=== PATIENT | male | born 1940 | race Caucasian/White ===

== ENCOUNTER 2016-12-07 20:05 | Emergency (ER) | payer MEDICARE, BC ==
[~2016-12-07] VITALS: Ht 172.7 cm; Wt 93.6 kg
[~2016-12-07 20:05] MED LIST: LISINOPRIL/HCTZ1 TA2 PO; PEPCID AC 10MG10 MG PO; PERCOCET 5/321 UDTAB PO; PRILOSEC 20MG20 MG PO; PRINZIDE 25 MG-1 TAB PO; ZOCOR 20MG20 MG PO
[2016-12-07 20:11] VITALS: TEMP 98.1
[2016-12-07] MEDS ORDERED: AMOXICILLIN 8751 TAB PO (22:39)
[2016-12-07 22:43] VITALS: BP 136/52; PULSE 80
== END 2016-12-07 22:47 | disposition home or self-care (01) ==
LOC: COL.ER 20:05
DX: S61.257A Open bite of left little finger without damage to nail, initial encounter (principal); S60.812A Abrasion of left wrist, initial encounter; S60.512A Abrasion of left hand, initial encounter; W55.01XA Bitten by cat, initial encounter; Y92.009 Unspecified place in unspecified non-institutional (private) residence as the place of occurrence of the external cause

== ENCOUNTER → 2016-12-16 | Emergency (ER) | payer MEDICARE, BC ==
[~2016-12-16] MED LIST changes: +AMOXICILLIN 8751 TAB PO
[2016-12-16 10:47] VITALS: BP 116/73; PULSE 59
== END | disposition home or self-care (01) ==
LOC: COL.ER 10:26
DX: Z48.02 Encounter for removal of sutures (principal)

== ENCOUNTER → 2018-10-31 | Outpatient (CLI) | payer MEDICARE, BC | LOC: COL.RAD 08:39 | DX: D32.0 Benign neoplasm of cerebral meninges (principal); G93.89 Other specified disorders of brain; Z98.890 Other specified postprocedural states | CPT/HCPCS: A9585 ==

== ENCOUNTER → 2019-05-08 | Outpatient (CLI) | payer MEDICARE, BC | LOC: COL.RAD 12:47 | DX: D32.0 Benign neoplasm of cerebral meninges (principal) | CPT/HCPCS: A9585 ==

== ENCOUNTER → 2019-05-28 | Outpatient (CLI) | payer MEDICARE, BC | LOC: MHCPAIN 10:33 | DX: G89.29 Other chronic pain (principal); M79.2 Neuralgia and neuritis, unspecified; B02.29 Other postherpetic nervous system involvement | CPT/HCPCS: G0463 ==

== ENCOUNTER 2019-10-05 23:53 | Emergency (ER) | payer MEDICARE, BC ==
[~2019-10-05] VITALS: Ht 172.7 cm; Wt 95.5 kg
[2019-10-06 00:02] VITALS: TEMP 98.3
[2019-10-06 02:00] VITALS: BP 154/79; PULSE 66
== END 2019-10-06 02:00 | disposition home or self-care (01) ==
LOC: COL.ER 23:53
DX: R06.00 Dyspnea, unspecified (principal); Z93.0 Tracheostomy status

== ENCOUNTER → 2019-11-08 | Outpatient (CLI) | payer MEDICARE, BC | LOC: COL.RAD 10:15 | DX: E04.1 Nontoxic single thyroid nodule (principal) ==

== ENCOUNTER → 2021-03-18 | Outpatient (CLI) | payer MEDICARE, BC | LOC: COL.RAD 09:20 | DX: D32.0 Benign neoplasm of cerebral meninges (principal) | CPT/HCPCS: A9585 ==

== ENCOUNTER → 2022-05-13 | Outpatient (CLI) | payer MEDICARE, BC | LOC: COL.RAD 09:44 | DX: D32.0 Benign neoplasm of cerebral meninges (principal) | CPT/HCPCS: A9575 ==

== ENCOUNTER 2023-12-09 10:35 | Emergency (ER) | payer MEDICARE, BC ==
[~2023-12-09] VITALS: Ht 167.6 cm; Wt 75.5 kg
[2023-12-09] MEDS ORDERED: Oxymetazoline 0.05% Nasal Spray 30 ML BOTTLE NS ONE (11:00)
[2023-12-09] MEDS ORDERED: Tranexamic Acid 1,000 MG/10 ML VIAL NS ONE (11:00)
[2023-12-09 11:33] LABS: BASO # 0.1 K/mm3 (0.0-0.2); BASO % 0.6 % (0.0-2.0); EOS # 0.2 K/mm3 (0.0-0.7); EOS % 2.1 % (0.0-4.0); GRAN # 5.6 K/mm3 (1.4-6.5); GRAN % 70.3 % (42.2-75.2); HEMATOCRIT 36.8 % (42.0-52.0); LYMPH # 1.6 K/mm3 (1.2-3.4); LYMPH % 19.4 % (20.0-51.0); MEAN CELL VOLUME 95 fl (80.0-100.0); MEAN CORPUSCULAR HEMOGLOBIN 31 pg (27-31); MEAN CORPUSCULAR HGB CONC 33 g/dl (33.0-37.0); MEAN PLATELET VOLUME 8.8 fl (7.4-10.4); MONO # 0.6 K/mm3 (0.1-0.6); MONO % 7.3 % (1.7-9.3); PLATELET COUNT 306 K/mm3 (130-400); RED BLOOD COUNT 3.87 M/mm3 (4.20-5.60); REDCELL DISTRIBUTION WIDTH-CV 13.2 % (11.5-14.5)
[2023-12-09 11:38] LABS: INR 1.1 (0.8-3.0); PROTHROMBIN TIME 12.1 SECONDS (9.7-12.8)
[2023-12-09 12:21] VITALS: BP 139/82; PULSE 95
== END 2023-12-09 12:35 | disposition home or self-care (01) ==
LOC: COL.ER 10:35
PROVIDERS: Family Medicine
DX: R04.0 Epistaxis (principal); D32.9 Benign neoplasm of meninges, unspecified

== ENCOUNTER 2024-03-23 04:39 | Emergency (ER) | payer MEDICARE, BC ==
[~2024-03-23] VITALS: Ht 172.7 cm; Wt 68.2 kg
[2024-03-23] MEDS ORDERED: cefTRIAXone 1 G in Water For Injection,Sterile 10 ML IV ONE (04:45)
[2024-03-23] MEDS ORDERED: NS 1,000 ML IV ONE (04:45)
[2024-03-23 04:47] VITALS: TEMP 96.1
[2024-03-23 05:54] LABS: ALBUMIN 3.3 g/dL (3.4-4.8); BILIRUBIN,TOTAL 0.9 mg/dL (0.2-1.2); CREATININE, serum 1.01 mg/dL (0.72-1.25); POTASSIUM 4.6 mEq/L (3.5-4.5); TOTAL PROTEIN 7.9 g/dl (6.2-8.1)
[2024-03-23 05:59] LABS: URINE APPEARANCE CLEAR (CLEAR/HAZY); URINE BLOOD NEGATIVE (NEGATIVE); URINE COLOR YELLOW (YELLOW); URINE GLUCOSE NEGATIVE (NEGATIVE); URINE KETONE TRACE (NEGATIVE); URINE NITRATE NEGATIVE (NEGATIVE); URINE PROTEIN(semi-quant) NEGATIVE (NEGATIVE); URINE UROBILINOGEN 0.2 E.U/dL (0.2-1.0)
[2024-03-23 06:16] LABS: COLLECTION METHOD CLEAN CATCH
[2024-03-23 06:31] LABS: BASO % 0.1 % (0.0-2.0); EOS # 0.1 K/mm3 (0.0-0.7); EOS % 1.1 % (0.0-4.0); GRAN # 9.6 K/mm3 (1.4-6.5); GRAN % 79.6 % (42.2-75.2); HEMATOCRIT 39.3 % (42.0-52.0); HEMOGLOBIN 12.5 g/dl (13.5-18.0); LYMPH # 1.7 K/mm3 (1.2-3.4); LYMPH % 13.9 % (20.0-51.0); MEAN CELL VOLUME 90 fl (80.0-100.0); MEAN CORPUSCULAR HEMOGLOBIN 29 pg (27-31); MEAN CORPUSCULAR HGB CONC 32 g/dl (33.0-37.0); MEAN PLATELET VOLUME 9.5 fl (7.4-10.4); MONO # 0.6 K/mm3 (0.1-0.6); PLATELET COUNT 235 K/mm3 (130-400); RED BLOOD COUNT 4.37 M/mm3 (4.20-5.60); REDCELL DISTRIBUTION WIDTH-CV 14.6 % (11.5-14.5)
[2024-03-23] MEDS ORDERED: LORazepam 2 MG/ML 1 ML VIAL IV ONE ×2 (07:30→12:45)
--- NOTE | 2024-03-23 13:22 | NUR ---
KAMINI consulted to ER to meet with family to discuss discharge options. Patient admitted from home after a fall during the night resulting in patient hitting his head and now with brain bleed. KAMINI met with patient's Significant Other (SO)/DPOA Rolandaprachi Chandra ([phone]) and Melania Yan DPOA in room. Patient is currently on hospice care through [facility] for brain tumor. KAMINI spoke with [employer] Manager of [facility] Crystal ([phone]) to discuss patient being in ER. She instructed that patient would need to revoke hospice services if admitted to hospital. Patient lives at home with Rolanda in [facility]. He lists Rolanda, Melania Yan and Shira Rojas as DPOA, copy of document provided at ER admission. Patient sees Dr. Wray as his PCP and uses [facility] pharmacy. Patient has been on hospice services since approximately January 2024. KAMINI spoke with ER physician who states that no treatment for brain bleed is indicated at this time. Dr. Angel, Hospitalist, is willing to admit if placement cannot be arranged from ER. KAMINI met with Rolanda and Melania to discuss discharge options. Medicare.gov list of SNFs and Hospice agencies. Discussed [facility] as well. They are in agreement to [facility]. Referral sent via secure email to James with [facility]. Patient accepted for admission today. SW returned to ER to complete transfer paperwork. KAMINI received call from James with [facility] stating that DPOA is declining admission due to patient not having a DNR. They stated to James that "patient wants to live". KAMINI discussed with ER physician. KAMINI met with all three DPOA in ER family room to discuss. ER physican also meeting with them. Rolanda is asking for patient to go to [facility] with hospice due to them not requiring a DNR. Physician and this SW explained purpose of DNR and that his care would not be interrupted if they decide to make patient a DNR. KAMINI called [facility] to inquire about LTC bed availability. No one is working in admissions until Monday. KAMINI informed DPOA of this barrier. They are now asking for patient to be admitted to hospital pending LTC bed at [place] on Monday. ER physician to discuss with Dr. Angel.
--- NOTE | 2024-03-23 14:47 | NUR ---
KAMINI notified by Dr. Angel that DPOA is now agreeable to admission to [facility] and agreeable to DNR. KAMINI called James at [facility] and was informed that they can still admit him today. Patient will admit to room 3. [facility] to transport patient at 1515 today. CHIRSTIAN Bajwa notified of transport time. DPBLAKE signed transfer form. James at [facility] notified of transport time. She asked for copy of DNR order to be sent with patient.
[2024-03-23 14:48] VITALS: BP 139/72; PULSE 48
== END 2024-03-23 15:53 | disposition hospice, inpatient (51) ==
LOC: COL.ER 04:39
PROVIDERS: Personal Emergency Response Attendant
DX: S06.2XAA Diffuse traumatic brain injury with loss of consciousness status unknown, initial encounter (principal); D42.9 Neoplasm of uncertain behavior of meninges, unspecified; W19.XXXA Unspecified fall, initial encounter; W22.8XXA Striking against or struck by other objects, initial encounter; Y92.129 Unspecified place in nursing home as the place of occurrence of the external cause
CPT/HCPCS: J2060; J7030